=== PATIENT | male | born 1950 | race Caucasian/White ===

== ENCOUNTER 2023-04-20 12:06 | Outpatient (CLI) | payer MEDICARE, OTHER | END 2023-04-20 12:07 | disposition home or self-care (01) | LOC: CSHLAB 12:06 | PROVIDERS: ATTEND Surgery | DX: Z01.818 Encounter for other preprocedural examination (principal); K40.91 Unilateral inguinal hernia, without obstruction or gangrene, recurrent | CPT/HCPCS: 93005; 93010 ==

== ENCOUNTER 2023-04-22 10:03 | Day surgery (SDC) | payer MEDICARE, OTHER ==
[2023-04-20 12:37] VITALS: BMI 25.1
[~2023-04-22 10:03] MED LIST: Bupivacaine PF 0.5% 30 ML VIAL ONE
[2023-04-22] MEDS ORDERED: Rocuronium Bromide 10 MG/ML (10ML VIAL) ONE (11:22)
[2023-04-22] MEDS ORDERED: Ondansetron PF 4 MG/2 ML Vial ONE (11:22)
[2023-04-22] MEDS ORDERED: PROPOFOL 20 ML ONE (11:22)
[2023-04-22] MEDS ORDERED: Lidocaine 1% PF 5 ML VIAL ONE (11:22)
[2023-04-22] MEDS ORDERED: Dexamethasone 20 MG/5 ML VIAL ONE (11:22)
[2023-04-22] MEDS ORDERED: Ketorolac Tromethamine 30 MG/ML VIAL ONE (11:23)
[2023-04-22] MEDS ORDERED: Fentanyl 250 MCG/5 ML VIAL ONE (11:23)
[2023-04-22] MEDS ORDERED: Midazolam HCl 2 mg/2 ml Vial ONE (11:23)
[2023-04-22] MEDS ORDERED: Clindamycin/D5W 600 mg/50 ml Premix Bag ONE (11:25)
[2023-04-22] MEDS ORDERED: EPINEPHrine 1 MG/ML AMP ONE (11:50)
[2023-04-22] MEDS ORDERED: Bupivacaine PF 0.5% 30 ML VIAL ONE (11:50)
[2023-04-22] MEDS ORDERED: ePHEDrine Sulfate 50 MG/10 ML VIAL ONE (11:53)
[2023-04-22] MEDS ORDERED: HYDROcodone/Acetaminophen 5/325 mg Tablet PO PRN (13:18)
[2023-04-22] MEDS ORDERED: Acetaminophen 325 MG TAB PO PRN (13:18)
== END 2023-04-22 14:40 | disposition home or self-care (01) ==
LOC: CSHSDC 10:03
PROVIDERS: ATTEND Surgery
PROC: 0YQ64ZZ Repair Left Inguinal Region, Percutaneous Endoscopic Approach (ICD-10-PCS; principal; 2023-04-22)
PROC: 8E0W4CZ Robotic Assisted Procedure of Trunk Region, Percutaneous Endoscopic Approach (ICD-10-PCS; 2023-04-22)
PROC: 0YQ64ZZ Repair Left Inguinal Region, Percutaneous Endoscopic Approach (ICD-10-PCS; 2023-04-22)
PROC: 8E0W4CZ Robotic Assisted Procedure of Trunk Region, Percutaneous Endoscopic Approach (ICD-10-PCS; 2023-04-22)
PROC: 0WQF0ZZ Repair Abdominal Wall, Open Approach (ICD-10-PCS; 2023-04-22)
PROC: 8E0W0CZ Robotic Assisted Procedure of Trunk Region, Open Approach (ICD-10-PCS; 2023-04-22)
DX: K43.2 Incisional hernia without obstruction or gangrene (principal); K40.91 Unilateral inguinal hernia, without obstruction or gangrene, recurrent; K40.90 Unilateral inguinal hernia, without obstruction or gangrene, not specified as recurrent; K21.9 Gastro-esophageal reflux disease without esophagitis; G47.33 Obstructive sleep apnea (adult) (pediatric); I25.10 Atherosclerotic heart disease of native coronary artery without angina pectoris; F15.90 Other stimulant use, unspecified, uncomplicated; Z88.1 Allergy status to other antibiotic agents; Z88.0 Allergy status to penicillin; Z88.2 Allergy status to sulfonamides; Z79.82 Long term (current) use of aspirin; Z79.899 Other long term (current) drug therapy
CPT/HCPCS: 49591; 49650; 49651; C1713; J0171; J1100; J1885; J2250; J2405; J2704; J3010; J3490; S0020